=== PATIENT | female | born 1965 | race Caucasian/White ===

== ENCOUNTER 2024-01-13 09:09 | Emergency (ER) | payer OTHER ==
[2024-01-13] MEDS: ONDANSETRON 4 MG/2 ML VIAL IVP STA (09:56)
[2024-01-13 09:59] LABS: BASOPHILS % (AUTO) 0.2 %; EOSINOPHILS % (AUTO) 0.2 %; HCT - HEMATOCRIT 34.4 % (37.0-47.0); HGB - HEMOGLOBIN 11.6 g/dL (12.0-16.0); LYMPHOCYTES # (AUTO) 0.6 10^3/uL (1.5-3.5); LYMPHOCYTES % (AUTO) 12.1 %; MEAN CORPUSCULAR HEMOGLOBIN 30.5 pg (27.0-31.0); MEAN CORPUSCULAR HGB CONC 33.7 g/dL (32.0-36.0); MEAN CORPUSCULAR VOLUME 90.5 fL (81.0-99.0); MEAN PLATELET VOLUME 9.7 fL (7.9-10.8); MONOCYTES # (AUTO) 0.4 10^3/uL (0.0-1.0); NEUTROPHILS # (AUTO) 3.8 10^3/uL (1.5-6.6); NEUTROPHILS % (AUTO) 78.3 %; PLT - PLATELET COUNT 213 10^3/uL (130-450); RED CELL DISTRIBUTION WIDTH 12.4 % (12.0-15.0); WHITE BLOOD COUNT 4.9 x10^3/uL (4.8-10.8)
[2024-01-13] MEDS: SODIUM CHLORIDE 0.9% 1,000 ML IV STA (09:59)
[2024-01-13 10:18] LABS: ALBUMIN 4.1 g/dL (3.2-5.5); ALBUMIN/GLOBULIN RATIO 1.7 (1.0-2.2); ALKALINE PHOSPHATASE 70 IU/L (42-121); ALT ALANINE AMINOTRANSFERASE 16 IU/L (10-60); AST ASPARTATE AMINOTRANSFERASE 22 IU/L (10-42); BILIRUBIN,TOTAL 0.7 mg/dL (0.2-1.0); BUN - BLOOD UREA NITROGEN 19 mg/dL (6-20); CALCIUM 9.3 mg/dL (8.5-10.3); CARBON DIOXIDE - CO2 31 mmol/L (21-32); CHLORIDE 98 mmol/L (101-111); CREATININE 1.1 mg/dL (0.6-1.3); GFR - MDRD 51 (>89); GLUCOSE 97 mg/dL (74-104); POTASSIUM 3.5 mmol/L (3.5-4.5); SODIUM 134 mmol/L (135-145); TOTAL PROTEIN 6.5 g/dL (6.4-8.9)
[2024-01-13 10:19] LABS: LIPASE < 10 U/L (11-82)
--- NOTE | 2024-01-13 10:53 | ED Physician Documentation ---
PD HPI NVD - Stated complaint Stated Complaint: N/V/D, SYNCOPE - Chief complaint Chief Complaint: Abd Pain - History obtained from History obtained from: Patient, Family - History of Present Illness Timing - onset: Yesterday Timing - duration: Days (2) Timing - details: Abrupt onset, Still present Associated symptoms: Near syncope / syncope Contributing factors: Bad food (The Tuna at a restaurant has made both people who ate it ill. The other food did not make the others sick.) Improved by: Meds Similar symptoms before: Diagnosis (food poisoning) Recently seen: Not recently seen - Additonal information Additional information: Leslie Bhagat is a 58-year-old female who is here for her son's wedding and she was out to dinner with friends and her 2 nights ago and she had the - he tuna as well as another person at the table and both of the people that had the tuna became violently ill. The patient states that she is feeling much better now after receiving a liter of fluid and some Zofran. She would like to go onto the wedding. Review of Systems Constitutional: denies: Fever Eyes: denies: Decreased vision Ears: denies: Ear pain Nose: denies: Rhinorrhea / runny nose, Congestion Throat: denies: Sore throat Cardiac: denies: Chest pain / pressure Respiratory: denies: Dyspnea, Cough GI: reports: Abdominal Pain, Nausea, Vomiting, Diarrhea : denies: Dysuria, Frequency Skin: denies: Rash Musculoskeletal: denies: Neck pain, Back pain, Extremity pain Neurologic: reports: Generalized weakness, Headache. 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, Hysterectomy - Present Medications Home Medications: Ambulatory Orders Medication Instructions Recorded Confirmed Levothyroxine [Synthroid] 1 tab PO DAILY 01/13/24 01/13/24 Ondansetron Odt [Zofran] 4 mg TL Q6H PRN #10 tablet 01/13/24 buPROPion HCL [Wellbutrin Xl] 1 tab PO DAILY 01/13/24 01/13/24 - Allergies Allergies/Adverse Reactions: Allergies Allergy/AdvReac Type Severity Reaction Status Date / Time No Known Drug Allergies Allergy Verified 01/13/24 09:25 - Social History Does the pt smoke?: No Smoking Status: Never smoker Does the pt drink ETOH?: No Does the pt have substance abuse?: No - Immunizations Immunizations are current?: Yes - POLST Patient has POLST: No PD ED PE NORMAL - Vitals Vital signs reviewed: Yes (normal ) - General General: Alert and oriented X 3, No acute distress, Well developed/nourished - HEENT HEENT: Atraumatic, PERRL, EOMI - Neck Neck: Supple, no meningeal sign, No bony TTP - Cardiac Cardiac: RRR, No murmur - Respiratory Respiratory: No respiratory distress, Clear bilaterally - Abdomen Abdomen: Soft, Non tender - Back Back: No CVA TTP, No spinal TTP - Derm Derm: Normal color, Warm and dry, No rash - Extremities Extremities: No deformity, No edema - Neuro Neuro: Alert and oriented X 3, 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, No motor deficit, No sensory deficit, Normal speech Eye Opening: Spontaneous Motor: Obeys Commands Verbal: Oriented GCS Score: 15 - Psych Psych: Normal mood, Normal affect Results - Vitals Vitals: Vital Signs - 24 hr 01/13/24 01/13/24 09:22 11:08 Temperature 36.4 C L Heart Rate 65 72 Respiratory 20 18 Rate Blood Pressure 121/78 134/76 H O2 Saturation 98 100 Oxygen O2 Source Room air - Labs Labs: Laboratory Tests 01/13/24 01/13/24 09:45 09:45 WBC 4.9 RBC 3.80 L Hgb 11.6 L Hct 34.4 L MCV 90.5 MCH 30.5 MCHC 33.7 RDW 12.4 Plt Count 213 MPV 9.7 Neut # (Auto) 3.8 Lymph # (Auto) 0.6 L [place] # (Auto) 0.4 Eos # (Auto) 0.0 Baso # (Auto) 0.0 Absolute Nucleated RBC 0.00 Nucleated RBC % 0.0 Sodium 134 L Potassium 3.5 Chloride 98 L Carbon Dioxide 31 Anion Gap 5.0 L BUN 19 Creatinine 1.1 Estimated GFR (MDRD) 51 L Glucose 97 Calcium 9.3 Total Bilirubin 0.7 AST 22 ALT 16 Alkaline Phosphatase 70 Total Protein 6.5 Albumin 4.1 Globulin 2.4 Albumin/Globulin Ratio 1.7 Lipase < 10 L PD Medical Decision Making - ED course Complexity details: reviewed results, re-evaluated patient, considered differential, d/w patient, d/w family ED course: 58-year-old female with acute food poisoning is administered intravenous saline and Zofran with marked improvement in her symptoms. She did have 2 episodes of vasovagal syncope both of these were accompanied by severe sweating and nausea and diarrhea. She has now recovered and feels well wants to go onto the wedding. Departure - Departure Disposition: 01 Home, Self Care Clinical Impression: Food poisoning Condition: Stable Instructions: ED Gastroenteritis Vs Food Poison Prescriptions: Ondansetron Odt [Zofran] 4 mg TL Q6H PRN #10 tablet PRN Reason: Nausea / Vomiting Comments: Leslie, today it looks like you have had food poisoning and episodes of vasovagal syncope. We were able to hydrate you and provide you with medication for nausea and I have E scribed additional nausea medicine to the [facility] in [place]. We are expecting complete resolution of your symptoms within the day. Drink additional fluids as you are still dehydrated. Forms: PCP List Discharge Date/Time: 01/13/24 11:08
[2024-01-13 11:17] VITALS: BP 134/76; O2SAT 100
== END 2024-01-13 11:08 | disposition home or self-care (01) ==
LOC: ED 09:09
DX: A05.9 Bacterial foodborne intoxication, unspecified (principal)
CPT/HCPCS: 36415; 80053; 83690; 85025; 96361; 96374; 99283